=== PATIENT | male | born 1950 | race Caucasian/White ===

== ENCOUNTER 2020-09-25 21:42 | Inpatient (IN) ==
[2020-09-25] MEDS ORDERED: methylPREDNISolone SOD SUC 125 MG/2 ML VIAL IV STA (22:19)
[2020-09-25 22:48] LABS: Basophils % 0.6 % (0.0-0.8); Eosinophils # 0.2 10*3/uL (0.0-0.87); Eosinophils % 2.2 % (0.00-10.9); Hematocrit 57.3 VOL% (42.0-52.0); Hemoglobin 18.2 GM/DL (14.0-18.0); Immature Granulocytes % 0.6 %; Immature Granulocytes Absolute 0.04 #; Lymphocytes # 1.5 10*3/uL (1.4-4.0); Lymphocytes % 20.7 % (21.2-54.2); Mean Corpuscular HGB Conc 31.8 GM/DL (32-36); Mean Corpuscular Volume 96.3 FL (87-102); Mean Platelet Volume 12.1 FL (9.6-12.0); Monocytes % 9.7 % (1.7-12.7); Neutrophils % 66.2 % (38.7-73.9); Platelet Count 193 T/CUMM (130-400); Red Blood Count 5.95 MC/CUMM (3.8-5.5); Red Cell Distribution Width 18.6 % (9.3-17.3); White Blood Count 7.2 T/CUMM (4-12)
[2020-09-25 22:57] LABS: Bilirubin,Total 0.5 MG/DL (0.2-1.0); Calcium 8.6 MG/DL (8.5-10.1); Osmolality,Calculated 287.3 MOS/KG (273-304); Potassium 4.8 MMOL/L (3.5-5.1); Total Protein 7.3 G/DL (5.0-7.5)
[2020-09-25 23:23] LABS: Allen Test Positive
[2020-09-25 23:25] LABS: ABG Base Excess 5.6 MMOL/L (-2.5-2.5); ABG HCO3 29.4 MMOL/L (20-26); ABG Oxygen Saturation 97.1 % (95-100); ABG PCO2 54.7 MM HG (35-48); ABG PH 7.388 (7.35-7.45); ABG PO2 83.2 MM HG (80-95); ABG TCO2 26.8 MMOL/L (23-27)
[2020-09-26] MEDS ORDERED: ALBUTEROL/IPRATROPIUM 3 ML NEB RESP TX STA ×2 (00:08→01:09)
[2020-09-26] MEDS ORDERED: AZITHROMYCIN INJ 500 MG in SODIUM CHLORIDE 0.9% 250 ML IV STA (00:23)
[2020-09-26] MEDS ORDERED: methylPREDNISolone SOD SUC 125 MG/2 ML VIAL IV STA (00:24)
[2020-09-26] MEDS ORDERED: ONDANSETRON 4 MG/2 ML VIAL IV PRN (00:37)
[2020-09-26] MEDS ORDERED: GLUCAGON 1 MG VIAL IM PRN (00:37)
[2020-09-26] MEDS ORDERED: DEXTROSE 50% 25 GM/50 ML VIAL IV PRN (00:37)
[2020-09-26] MEDS ORDERED: SODIUM CHLORIDE 0.9% 1,000 ML IV SCH (01:00)
[2020-09-26] MEDS: ALBUTEROL/IPRATROPIUM 3 ML NEB RESP TX SCH ×6 (04:34→23:40)
[2020-09-26 06:12] LABS: Basophils % 0.4 % (0.0-0.8); Eosinophils % 0.1 % (0.00-10.9); Hematocrit 56.5 VOL% (42.0-52.0); Hemoglobin 18.1 GM/DL (14.0-18.0); Immature Granulocytes % 0.7 %; Immature Granulocytes Absolute 0.05 #; Lymphocytes # 0.7 10*3/uL (1.4-4.0); Lymphocytes % 9.8 % (21.2-54.2); Mean Corpuscular Volume 95.4 FL (87-102); Mean Platelet Volume 12.1 FL (9.6-12.0); Monocytes % 0.9 % (1.7-12.7); Neutrophils % 88.1 % (38.7-73.9); Platelet Count 170 T/CUMM (130-400); Red Blood Count 5.92 MC/CUMM (3.8-5.5); Red Cell Distribution Width 18.5 % (9.3-17.3); White Blood Count 6.7 T/CUMM (4-12)
[2020-09-26 06:19] LABS: Calcium 9.1 MG/DL (8.5-10.1); Potassium 4.5 MMOL/L (3.5-5.1)
[2020-09-26] MEDS ORDERED: ENOXAPARIN 40 MG/0.4 ML SYRINGE SUBCUT SCH (09:00)
[2020-09-26] MEDS ORDERED: FUROSEMIDE 40 MG/4 ML VIAL IV SCH (09:00)
[2020-09-26] MEDS ORDERED: FUROSEMIDE 20 MG TABLET PO SCH (09:00)
[2020-09-26] MEDS: methylPREDNISolone SOD SUC 40 MG/1 ML VIAL IV SCH ×3 (09:05→23:42)
[2020-09-26] MEDS: PANTOPRAZOLE 40 MG TABLET PO SCH (09:06)
[2020-09-26] MEDS: SPIRONOLACTONE 25 MG TABLET PO SCH (09:06)
[2020-09-26] MEDS: APIXABAN 5 MG TABLET PO SCH ×2 (09:06→21:16)
[2020-09-26] MEDS: METOPROLOL SUCCINATE XL 25 MG TABLET PO SCH (09:06)
[2020-09-26] MEDS ORDERED: LEVOFLOXACIN INJ 500 MG in PREMIX 1 EACH IV SCH (13:00)
[2020-09-26] MEDS ORDERED: SKIN HEALING OINT (AQUAPHOR) 50 GM TUBE TOP PRN (14:13)
[2020-09-26] MEDS: LEVOFLOXACIN INJ 750 MG in PREMIX 1 EACH IV SCH (14:25)
[2020-09-26] MEDS ORDERED: AZITHROMYCIN INJ 500 MG in SODIUM CHLORIDE 0.9% 250 ML IV SCH (21:00)
[2020-09-26] MEDS: FUROSEMIDE 40 MG/4 ML VIAL IV SCH (21:19)
[2020-09-27] MEDS: ALBUTEROL/IPRATROPIUM 3 ML NEB RESP TX SCH ×6 (03:13→23:47)
[2020-09-27] MEDS ORDERED: lisinopriL 5 MG TABLET PO SCH (09:00)
[2020-09-27] MEDS: PANTOPRAZOLE 40 MG TABLET PO SCH (09:24)
[2020-09-27] MEDS: methylPREDNISolone SOD SUC 40 MG/1 ML VIAL IV SCH ×3 (09:24→23:50)
[2020-09-27] MEDS: FUROSEMIDE 40 MG/4 ML VIAL IV SCH ×2 (09:24→21:07)
[2020-09-27] MEDS: METOPROLOL SUCCINATE XL 25 MG TABLET PO SCH (09:24)
[2020-09-27] MEDS: APIXABAN 5 MG TABLET PO SCH ×2 (09:24→21:06)
[2020-09-27] MEDS: SPIRONOLACTONE 25 MG TABLET PO SCH (09:24)
[2020-09-27 10:24] LABS: Troponin I < 0.015 NG/ML (0.00-0.045)
[2020-09-27] MEDS: LEVOFLOXACIN INJ 750 MG in PREMIX 1 EACH IV SCH (13:20)
[2020-09-27] MEDS ORDERED: DEXTROSE 50% 25 GM/50 ML VIAL IV PRN (16:47)
[2020-09-27] MEDS ORDERED: GLUCAGON 1 MG VIAL IM PRN (16:47)
[2020-09-27] MEDS: INSULIN REGULAR 100 UNIT/ML SUBCUT SCH (21:07)
[2020-09-28] MEDS: ALBUTEROL/IPRATROPIUM 3 ML NEB RESP TX SCH ×5 (03:20→19:31)
[2020-09-28 04:42] LABS: Risk Ratio 3.72; VLDL CHOLESTEROL 15.4 MG/DL
[2020-09-28 04:44] LABS: Calcium 8.8 MG/DL (8.5-10.1); Osmolality,Calculated 284.7 MOS/KG (273-304); Potassium 4.4 MMOL/L (3.5-5.1)
[2020-09-28 04:49] LABS: Troponin I < 0.015 NG/ML (0.00-0.045)
[2020-09-28 04:59] LABS: Basophils % 0.1 % (0.0-0.8); Hematocrit 56.3 VOL% (42.0-52.0); Immature Granulocytes % 0.6 %; Immature Granulocytes Absolute 0.08 #; Lymphocytes # 0.6 10*3/uL (1.4-4.0); Lymphocytes % 3.8 % (21.2-54.2); Mean Corpuscular Volume 96.2 FL (87-102); Mean Platelet Volume 11.3 FL (9.6-12.0); Monocytes % 2.3 % (1.7-12.7); Neutrophils % 93.2 % (38.7-73.9); Platelet Count 166 T/CUMM (130-400); Red Blood Count 5.85 MC/CUMM (3.8-5.5); Red Cell Distribution Width 17.9 % (9.3-17.3)
[2020-09-28 05:00] LABS: White Blood Count 14.5 T/CUMM (4-12)
[2020-09-28 05:29] LABS: Band Neutrophils 2 % (0-10); Hypochromasia 1+; Lymphocytes 4 % (20-55); Microcytosis 1+; Platelet Estimate Adequate; Segmented Neutrophils 92 % (50-85); Total Cells Counted 100
[2020-09-28] MEDS: INSULIN REGULAR 100 UNIT/ML SUBCUT SCH ×4 (08:32→21:22)
[2020-09-28] MEDS: FUROSEMIDE 40 MG TABLET PO SCH (08:34)
[2020-09-28] MEDS: SPIRONOLACTONE 25 MG TABLET PO SCH (08:34)
[2020-09-28] MEDS: LOSARTAN 25 MG TABLET PO SCH (08:34)
[2020-09-28] MEDS: METOPROLOL SUCCINATE XL 25 MG TABLET PO SCH (08:35)
[2020-09-28] MEDS: PANTOPRAZOLE 40 MG TABLET PO SCH (08:35)
[2020-09-28] MEDS: methylPREDNISolone SOD SUC 40 MG/1 ML VIAL IV SCH ×2 (08:36→16:59)
[2020-09-28] MEDS: APIXABAN 5 MG TABLET PO SCH ×2 (08:55→21:16)
[2020-09-28] MEDS ORDERED: SODIUM CHLORIDE 0.45% 1,000 ML IV SCH (09:00)
[2020-09-28] MEDS ORDERED: DIAZEPAM 5 MG TABLET PO ONE (12:00)
[2020-09-28] MEDS ORDERED: diphenhydrAMINE CAP 25 MG CAPSULE PO ONE (12:00)
[2020-09-28] MEDS: LEVOFLOXACIN INJ 750 MG in PREMIX 1 EACH IV SCH (14:03)
[2020-09-29] MEDS: ALBUTEROL/IPRATROPIUM 3 ML NEB RESP TX SCH ×3 (00:43→08:02)
[2020-09-29 05:54] LABS: Basophils % 0.2 % (0.0-0.8); Hemoglobin 18.5 GM/DL (14.0-18.0); Immature Granulocytes % 0.8 %; Immature Granulocytes Absolute 0.11 #; Lymphocytes # 0.5 10*3/uL (1.4-4.0); Lymphocytes % 3.4 % (21.2-54.2); Mean Corpuscular HGB Conc 31.4 GM/DL (32-36); Mean Corpuscular Volume 95.9 FL (87-102); Mean Platelet Volume 11.8 FL (9.6-12.0); Monocytes % 5.6 % (1.7-12.7); Platelet Count 168 T/CUMM (130-400); Red Blood Count 6.15 MC/CUMM (3.8-5.5); Red Cell Distribution Width 17.8 % (9.3-17.3); White Blood Count 13.2 T/CUMM (4-12)
[2020-09-29 06:25] LABS: Band Neutrophils 1 % (0-10); Lymphocytes 5 % (20-55); Platelet Estimate Normal; Segmented Neutrophils 87 % (50-85); Total Cells Counted 100
[2020-09-29 06:26] LABS: Calcium 8.6 MG/DL (8.5-10.1); Potassium 3.7 MMOL/L (3.5-5.1)
[2020-09-29] MEDS ORDERED: LEVOFLOXACIN 750 MG TABLET PO SCH (09:00)
[2020-09-29] MEDS ORDERED: predniSONE 20 MG TABLET PO SCH (09:00)
[2020-09-29] MEDS: LOSARTAN 25 MG TABLET PO SCH (10:10)
[2020-09-29] MEDS: APIXABAN 5 MG TABLET PO SCH (10:10)
[2020-09-29] MEDS: SPIRONOLACTONE 25 MG TABLET PO SCH (10:10)
[2020-09-29] MEDS: FUROSEMIDE 40 MG TABLET PO SCH (10:11)
[2020-09-29] MEDS: PANTOPRAZOLE 40 MG TABLET PO SCH (10:11)
[2020-09-29] MEDS: METOPROLOL SUCCINATE XL 25 MG TABLET PO SCH (10:11)
[2020-09-29] MEDS: INSULIN REGULAR 100 UNIT/ML SUBCUT SCH ×2 (10:19→12:59)
[2020-09-29 18:47] VITALS: BP 151/79
== END 2020-09-29 13:40 | disposition home health service (06) | DRG 190 ==
LOC: N.ED 21:42 → N.EDINP 09-26 00:37 → SUATTDRO 09-26 00:37 → N.3E 09-26 02:01
PROVIDERS: ADMIT Internal Medicine; ATTEND Internal Medicine

== ENCOUNTER 2020-10-08 00:18 | Inpatient (IN) ==
[2020-10-08 00:41] LABS: Basophils % 0.4 % (0.0-0.8); Eosinophils # 0.1 10*3/uL (0.0-0.87); Hematocrit 57.1 VOL% (42.0-52.0); Hemoglobin 18.9 GM/DL (14.0-18.0); Immature Granulocytes % 1.6 %; Immature Granulocytes Absolute 0.18 #; Lymphocytes # 1.4 10*3/uL (1.4-4.0); Lymphocytes % 12.5 % (21.2-54.2); Mean Corpuscular HGB Conc 33.1 GM/DL (32-36); Mean Corpuscular Volume 93.9 FL (87-102); Monocytes % 8.6 % (1.7-12.7); Neutrophils % 75.9 % (38.7-73.9); Platelet Count 171 T/CUMM (130-400); Red Blood Count 6.08 MC/CUMM (3.8-5.5); White Blood Count 11.4 T/CUMM (4-12)
[2020-10-08 01:06] LABS: Albumin 3.1 G/DL (3.4-5.0); Bilirubin,Total 0.6 MG/DL (0.2-1.0); Calcium 8.7 MG/DL (8.5-10.1); Osmolality,Calculated 278.8 MOS/KG (273-304); Potassium 4.8 MMOL/L (3.5-5.1); Total Protein 6.5 G/DL (6.4-8.2)
[2020-10-08] MEDS ORDERED: methylPREDNISolone SOD SUC 125 MG/2 ML VIAL IV STA (02:15)
[2020-10-08] MEDS ORDERED: ALBUTEROL/IPRATROPIUM 3 ML NEB RESP TX STA (02:15)
[2020-10-08] MEDS ORDERED: ONDANSETRON 4 MG/2 ML VIAL IV STA (02:15)
[2020-10-08] MEDS ORDERED: FUROSEMIDE 40 MG/4 ML VIAL IV STA (02:15)
[2020-10-08] MEDS ORDERED: MAGNESIUM SULF RIDER 2 GM in PREMIX 1 EACH IV STA (02:37)
[2020-10-08 03:54] LABS: INR 4.1
[2020-10-08 03:57] LABS: ABG Base Excess 6.9 MMOL/L (-2.5-2.5); ABG HCO3 30.6 MMOL/L (20-26); ABG Oxygen Saturation 94.2 % (95-100); ABG PH 7.319 (7.35-7.45); ABG PO2 68.3 MM HG (80-95); ABG TCO2 31.2 MMOL/L (23-27)
[2020-10-08 03:59] LABS: ABG PCO2 73.9 MM HG (35-48)
[2020-10-08 04:09] LABS: PT Patient Result 40.8 SECS (9.8-11.9)
[2020-10-08 05:31] LABS: ABG HCO3 30.7 MMOL/L (20-26); ABG Oxygen Saturation 95.1 % (95-100); ABG PCO2 53.1 MM HG (35-48); ABG PH 7.415 (7.35-7.45); ABG PO2 65.3 MM HG (80-95); ABG TCO2 27.3 MMOL/L (23-27)
[2020-10-08] MEDS ORDERED: ALBUTEROL 2.5 MG/3 ML NEB RESP TX PRN (06:12)
[2020-10-08] MEDS ORDERED: DOCUSATE SODIUM 100 MG CAPSULE PO PRN (06:15)
[2020-10-08] MEDS ORDERED: ONDANSETRON 4 MG/2 ML VIAL IV PRN (06:15)
[2020-10-08] MEDS ORDERED: DEXTROSE 50% 25 GM/50 ML VIAL IV PRN (06:15)
[2020-10-08] MEDS ORDERED: ACETAMINOPHEN 325 MG TABLET PO PRN (06:15)
[2020-10-08] MEDS ORDERED: GLUCAGON 1 MG VIAL IM PRN (06:15)
[2020-10-08 06:54] LABS: Risk Ratio 5.38; VLDL CHOLESTEROL 26.4 MG/DL
[2020-10-08] MEDS: ALBUTEROL/IPRATROPIUM 3 ML NEB RESP TX SCH ×3 (07:48→18:57)
[2020-10-08] MEDS: INSULIN LISPRO 100 UNIT/ML SUBCUT SCH ×4 (09:51→20:52)
[2020-10-08] MEDS: FUROSEMIDE 40 MG/4 ML VIAL IV SCH ×2 (09:52→17:20)
[2020-10-08] MEDS: APIXABAN 5 MG TABLET PO SCH ×2 (09:52→20:47)
[2020-10-08] MEDS: AZITHROMYCIN INJ 500 MG in SODIUM CHLORIDE 0.9% 250 ML IV SCH (09:52)
[2020-10-08] MEDS: METOPROLOL SUCCINATE XL 25 MG TABLET PO SCH (09:53)
[2020-10-08] MEDS: methylPREDNISolone SOD SUC 40 MG/1 ML VIAL IV SCH ×2 (13:56→23:56)
[2020-10-08] MEDS ORDERED: SKIN HEALING OINT (AQUAPHOR) 50 GM TUBE TOP PRN (17:17)
[2020-10-08] MEDS: TRIAMCINOLONE 0.1% CREAM 15 GM TUBE TOP SCH ×2 (17:20→20:48)
[2020-10-09] MEDS: ALBUTEROL/IPRATROPIUM 3 ML NEB RESP TX SCH ×4 (00:36→18:43)
[2020-10-09] MEDS: methylPREDNISolone SOD SUC 40 MG/1 ML VIAL IV SCH ×3 (05:34→21:28)
[2020-10-09 05:48] LABS: Basophils # 0.1 10*3/uL (0.0-0.2); Basophils % 0.3 % (0.0-0.8); Hematocrit 53.2 VOL% (42.0-52.0); Hemoglobin 17.4 GM/DL (14.0-18.0); Immature Granulocytes % 1.2 %; Immature Granulocytes Absolute 0.23 #; Lymphocytes # 0.6 10*3/uL (1.4-4.0); Lymphocytes % 3.2 % (21.2-54.2); Mean Corpuscular HGB Conc 32.7 GM/DL (32-36); Mean Corpuscular Volume 93.8 FL (87-102); Mean Platelet Volume 12.4 FL (9.6-12.0); Monocytes % 2.3 % (1.7-12.7); NRBC # 0.02 10*3/uL; Platelet Count 164 T/CUMM (130-400); Red Blood Count 5.67 MC/CUMM (3.8-5.5); White Blood Count 18.6 T/CUMM (4-12)
[2020-10-09 06:02] LABS: Calcium 8.9 MG/DL (8.5-10.1); Osmolality,Calculated 287.2 MOS/KG (273-304); Potassium 4.3 MMOL/L (3.5-5.1)
[2020-10-09] MEDS: AZITHROMYCIN INJ 500 MG in SODIUM CHLORIDE 0.9% 250 ML IV SCH (06:12)
[2020-10-09 06:23] LABS: Band Neutrophils 2 % (0-10); Lymphocytes 5 % (20-55); Segmented Neutrophils 91 % (50-85); Total Cells Counted 100
[2020-10-09 06:24] LABS: Platelet Estimate Adequate
[2020-10-09] MEDS: APIXABAN 5 MG TABLET PO SCH ×2 (08:34→20:38)
[2020-10-09] MEDS: FUROSEMIDE 40 MG/4 ML VIAL IV SCH (08:35)
[2020-10-09] MEDS: METOPROLOL SUCCINATE XL 25 MG TABLET PO SCH (08:35)
[2020-10-09] MEDS: INSULIN LISPRO 100 UNIT/ML SUBCUT SCH ×4 (08:35→20:38)
[2020-10-09] MEDS: TRIAMCINOLONE 0.1% CREAM 15 GM TUBE TOP SCH ×2 (08:36→20:38)
[2020-10-09] MEDS: LEVOFLOXACIN INJ 750 MG in PREMIX 1 EACH IV SCH (10:55)
[2020-10-10] MEDS: ALBUTEROL/IPRATROPIUM 3 ML NEB RESP TX SCH ×4 (01:25→19:15)
[2020-10-10 05:47] LABS: Basophils # 0.1 10*3/uL (0.0-0.2); Basophils % 0.3 % (0.0-0.8); Hematocrit 54.6 VOL% (42.0-52.0); Hemoglobin 17.2 GM/DL (14.0-18.0); Immature Granulocytes Absolute 0.23 #; Lymphocytes # 0.6 10*3/uL (1.4-4.0); Lymphocytes % 2.6 % (21.2-54.2); Mean Corpuscular HGB Conc 31.5 GM/DL (32-36); Mean Corpuscular Volume 96.8 FL (87-102); Mean Platelet Volume 12.1 FL (9.6-12.0); Neutrophils % 94.1 % (38.7-73.9); Platelet Count 157 T/CUMM (130-400); Red Blood Count 5.64 MC/CUMM (3.8-5.5); Red Cell Distribution Width 17.4 % (9.3-17.3); White Blood Count 23.5 T/CUMM (4-12)
[2020-10-10] MEDS: methylPREDNISolone SOD SUC 40 MG/1 ML VIAL IV SCH ×3 (05:51→21:54)
[2020-10-10 06:04] LABS: Osmolality,Calculated 276.1 MOS/KG (273-304); Potassium 4.7 MMOL/L (3.5-5.1)
[2020-10-10 06:10] LABS: Band Neutrophils 2 % (0-10); Hypochromasia 1+; Lymphocytes 2 % (20-55); Microcytosis 1+; Segmented Neutrophils 93 % (50-85); Total Cells Counted 100
[2020-10-10 06:11] LABS: Platelet Estimate Adequate
[2020-10-10] MEDS: METOPROLOL SUCCINATE XL 25 MG TABLET PO SCH (08:25)
[2020-10-10] MEDS: LEVOFLOXACIN INJ 750 MG in PREMIX 1 EACH IV SCH ×2 (08:25→13:29)
[2020-10-10] MEDS: APIXABAN 5 MG TABLET PO SCH ×2 (08:25→21:53)
[2020-10-10] MEDS: INSULIN LISPRO 100 UNIT/ML SUBCUT SCH ×4 (08:27→21:53)
[2020-10-10] MEDS: TRIAMCINOLONE 0.1% CREAM 15 GM TUBE TOP SCH ×2 (08:27→21:53)
[2020-10-10] MEDS ORDERED: FUROSEMIDE 40 MG/4 ML VIAL IV SCH ×2 (09:00)
[2020-10-10] MEDS: FUROSEMIDE 40 MG/4 ML VIAL IV SCH (16:00)
[2020-10-11] MEDS: ALBUTEROL/IPRATROPIUM 3 ML NEB RESP TX SCH ×3 (00:05→13:30)
[2020-10-11] MEDS: methylPREDNISolone SOD SUC 40 MG/1 ML VIAL IV SCH (05:35)
[2020-10-11 07:16] LABS: Basophils % 0.2 % (0.0-0.8); Hematocrit 54.5 VOL% (42.0-52.0); Hemoglobin 17.6 GM/DL (14.0-18.0); Immature Granulocytes % 0.7 %; Immature Granulocytes Absolute 0.13 #; Lymphocytes # 0.5 10*3/uL (1.4-4.0); Lymphocytes % 2.5 % (21.2-54.2); Mean Corpuscular HGB Conc 32.3 GM/DL (32-36); Mean Corpuscular Volume 95.6 FL (87-102); Mean Platelet Volume 11.2 FL (9.6-12.0); Monocytes % 2.2 % (1.7-12.7); Neutrophils % 94.4 % (38.7-73.9); Platelet Count 142 T/CUMM (130-400); Red Cell Distribution Width 17.5 % (9.3-17.3); White Blood Count 17.8 T/CUMM (4-12)
[2020-10-11 07:28] LABS: Calcium 8.8 MG/DL (8.5-10.1); Osmolality,Calculated 277.1 MOS/KG (273-304); Potassium 4.7 MMOL/L (3.5-5.1)
[2020-10-11 07:39] LABS: Lymphocytes 4 % (20-55); Platelet Estimate Adequate; Segmented Neutrophils 95 % (50-85); Total Cells Counted 100
[2020-10-11] MEDS: INSULIN LISPRO 100 UNIT/ML SUBCUT SCH ×2 (08:45→13:31)
[2020-10-11] MEDS: METOPROLOL SUCCINATE XL 25 MG TABLET PO SCH (09:28)
[2020-10-11] MEDS: FUROSEMIDE 40 MG/4 ML VIAL IV SCH (09:28)
[2020-10-11] MEDS: APIXABAN 5 MG TABLET PO SCH (09:29)
[2020-10-11] MEDS: TRIAMCINOLONE 0.1% CREAM 15 GM TUBE TOP SCH (09:29)
[2020-10-11] MEDS: LEVOFLOXACIN INJ 750 MG in PREMIX 1 EACH IV SCH (09:30)
[2020-10-11 12:29] VITALS: BP 158/75
== END 2020-10-11 14:21 | disposition home health service (06) | DRG 291 ==
LOC: SUATTDRO → N.ED 00:18 → N.EDINP 00:18 → N.TELES 07:55
PROVIDERS: ADMIT Internal Medicine; ATTEND Internal Medicine

== ENCOUNTER 2020-12-25 19:24 | Inpatient (IN) ==
[2020-12-25] MEDS ORDERED: FUROSEMIDE 100 MG/10 ML VIAL IV STA (19:45)
[2020-12-25 19:59] LABS: Basophils % 0.5 % (0.0-0.8); Eosinophils # 0.2 10*3/uL (0.0-0.87); Eosinophils % 2.2 % (0.00-10.9); Hematocrit 50.8 VOL% (42.0-52.0); Hemoglobin 16.3 GM/DL (14.0-18.0); Immature Granulocytes % 0.7 %; Immature Granulocytes Absolute 0.06 #; Lymphocytes # 1.8 10*3/uL (1.4-4.0); Lymphocytes % 21.1 % (21.2-54.2); Mean Corpuscular HGB Conc 32.1 GM/DL (32-36); Mean Corpuscular Volume 99.6 FL (87-102); Mean Platelet Volume 11.1 FL (9.6-12.0); Monocytes % 9.6 % (1.7-12.7); Neutrophils % 65.9 % (38.7-73.9); Platelet Count 217 T/CUMM (130-400); Red Cell Distribution Width 15.9 % (9.3-17.3); White Blood Count 8.5 T/CUMM (4-12)
[2020-12-25 20:13] LABS: INR 1.1
[2020-12-25 20:24] LABS: Alanine Aminotransferase < 6 U/L (16-61); Albumin 2.8 G/DL (3.4-5.0); Alkaline Phosphatase 72 U/L (45-117); Aspartate Amino Transferase 10 U/L (0-37); Bilirubin,Total < 0.39 MG/DL (0.2-1.0); Blood Urea Nitrogen 12 MG/DL (7-18); Calcium 8.9 MG/DL (8.5-10.1); Carbon Dioxide 30 MMOL/L (21-32); Estimated Glom Filtration Rate 137 ML/MIN; Glucose 124 MG/DL (74-106); Osmolality,Calculated 279.4 MOS/KG (273-304); Potassium 4.1 MMOL/L (3.5-5.1); Sodium 140 MMOL/L (136-145); Total Protein 6.8 G/DL (6.4-8.2)
[2020-12-25 21:17] LABS: ABG Base Excess 4.7 MMOL/L (-2.5-2.5); ABG HCO3 28.5 MMOL/L (20-26); ABG PCO2 63.5 MM HG (35-48); ABG PH 7.332 (7.35-7.45); ABG PO2 73.6 MM HG (80-95); ABG TCO2 28.3 MMOL/L (23-27); Allen Test Positive
[2020-12-25] MEDS ORDERED: GLUCAGON 1 MG VIAL IM PRN (23:48)
[2020-12-25] MEDS ORDERED: DEXTROSE 50% 25 GM/50 ML VIAL IV PRN (23:48)
[2020-12-26] MEDS ORDERED: DOCUSATE SODIUM 100 MG CAPSULE PO PRN (00:20)
[2020-12-26] MEDS ORDERED: hydrALAZINE 20 MG/1 ML VIAL IV PRN (00:20)
[2020-12-26] MEDS ORDERED: ACETAMINOPHEN 325 MG TABLET PO PRN (00:20)
[2020-12-26] MEDS ORDERED: ONDANSETRON 4 MG/2 ML VIAL IV PRN (00:20)
[2020-12-26] MEDS: ALBUTEROL/IPRATROPIUM 3 ML NEB RESP TX SCH ×4 (00:55→21:54)
[2020-12-26] MEDS ORDERED: NICOTINE 21 MG/24 HR PATCH TRANSDERM PRN (01:05)
[2020-12-26] MEDS: APIXABAN 5 MG TABLET PO SCH ×3 (01:42→20:33)
[2020-12-26 04:54] LABS: Basophils % 0.4 % (0.0-0.8); Eosinophils # 0.1 10*3/uL (0.0-0.87); Eosinophils % 1.7 % (0.00-10.9); Hematocrit 50.4 VOL% (42.0-52.0); Hemoglobin 16.4 GM/DL (14.0-18.0); Immature Granulocytes % 0.5 %; Immature Granulocytes Absolute 0.04 #; Lymphocytes # 1.4 10*3/uL (1.4-4.0); Lymphocytes % 16.7 % (21.2-54.2); Mean Corpuscular HGB Conc 32.5 GM/DL (32-36); Mean Corpuscular Volume 99.6 FL (87-102); Mean Platelet Volume 11.8 FL (9.6-12.0); Monocytes % 9.3 % (1.7-12.7); Neutrophils % 71.4 % (38.7-73.9); Platelet Count 159 T/CUMM (130-400); Red Blood Count 5.06 MC/CUMM (3.8-5.5); Red Cell Distribution Width 15.9 % (9.3-17.3); White Blood Count 8.3 T/CUMM (4-12)
[2020-12-26 05:14] LABS: Platelet Estimate Adequate
[2020-12-26 05:21] LABS: Calcium 8.8 MG/DL (8.5-10.1); Osmolality,Calculated 274.7 MOS/KG (273-304); Potassium 4.2 MMOL/L (3.5-5.1)
[2020-12-26] MEDS: INSULIN LISPRO 100 UNIT/ML SUBCUT SCH ×4 (08:18→20:33)
[2020-12-26] MEDS ORDERED: LEVOFLOXACIN INJ 500 MG/100 ML PREMIX IV SCH (09:30)
[2020-12-26] MEDS: FUROSEMIDE 40 MG/4 ML VIAL IV SCH ×2 (09:31→17:39)
[2020-12-26] MEDS: METOPROLOL SUCCINATE XL 25 MG TABLET PO SCH (09:32)
[2020-12-26] MEDS ORDERED: SKIN HEALING OINT (AQUAPHOR) 50 GM TUBE TOP PRN (13:11)
[2020-12-26] MEDS: CLINDAMYCIN INJ 300 MG/50 ML PREMIX IV SCH ×2 (13:55→20:34)
[2020-12-27] MEDS: ALBUTEROL/IPRATROPIUM 3 ML NEB RESP TX SCH ×4 (00:20→19:29)
[2020-12-27] MEDS: CLINDAMYCIN INJ 300 MG/50 ML PREMIX IV SCH ×3 (04:42→20:17)
[2020-12-27 06:12] LABS: Basophils % 0.3 % (0.0-0.8); Eosinophils # 0.1 10*3/uL (0.0-0.87); Eosinophils % 1.1 % (0.00-10.9); Hematocrit 51.7 VOL% (42.0-52.0); Hemoglobin 16.5 GM/DL (14.0-18.0); Immature Granulocytes % 0.6 %; Immature Granulocytes Absolute 0.07 #; Lymphocytes # 1.4 10*3/uL (1.4-4.0); Mean Corpuscular HGB Conc 31.9 GM/DL (32-36); Mean Corpuscular Volume 100.2 FL (87-102); Mean Platelet Volume 11.5 FL (9.6-12.0); Monocytes % 8.5 % (1.7-12.7); Neutrophils % 77.5 % (38.7-73.9); Platelet Count 200 T/CUMM (130-400); Red Blood Count 5.16 MC/CUMM (3.8-5.5); Red Cell Distribution Width 15.7 % (9.3-17.3); White Blood Count 11.6 T/CUMM (4-12)
[2020-12-27 06:28] LABS: Calcium 8.4 MG/DL (8.5-10.1); Osmolality,Calculated 275.8 MOS/KG (273-304); Potassium 3.8 MMOL/L (3.5-5.1)
[2020-12-27] MEDS: METOPROLOL SUCCINATE XL 25 MG TABLET PO SCH (09:12)
[2020-12-27] MEDS: INSULIN LISPRO 100 UNIT/ML SUBCUT SCH ×4 (09:12→20:17)
[2020-12-27] MEDS: APIXABAN 5 MG TABLET PO SCH ×2 (09:12→20:17)
[2020-12-27] MEDS: LOSARTAN 25 MG TABLET PO SCH (09:12)
[2020-12-27] MEDS: FUROSEMIDE 40 MG/4 ML VIAL IV SCH ×2 (09:13→17:15)
[2020-12-27] MEDS ORDERED: TUBERCULIN SKIN TEST 0.1 ML SYRINGE INTRADERM ONE (10:57)
[2020-12-28] MEDS: ALBUTEROL/IPRATROPIUM 3 ML NEB RESP TX SCH ×2 (01:00→07:10)
[2020-12-28] MEDS: CLINDAMYCIN INJ 300 MG/50 ML PREMIX IV SCH (04:48)
[2020-12-28 07:33] LABS: Calcium 8.2 MG/DL (8.5-10.1); Osmolality,Calculated 276.8 MOS/KG (273-304); Potassium 3.8 MMOL/L (3.5-5.1)
[2020-12-28] MEDS: INSULIN LISPRO 100 UNIT/ML SUBCUT SCH (08:06)
[2020-12-28] MEDS ORDERED: METOPROLOL SUCCINATE XL 50 MG TABLET PO SCH (09:00)
[2020-12-28] MEDS: LOSARTAN 25 MG TABLET PO SCH (09:52)
[2020-12-28] MEDS: FUROSEMIDE 40 MG/4 ML VIAL IV SCH (09:53)
[2020-12-28] MEDS: APIXABAN 5 MG TABLET PO SCH (09:53)
[2020-12-28 12:15] VITALS: BP 116/71
== END 2020-12-28 11:28 | disposition swing bed (61) | DRG 291 ==
LOC: N.ED 19:24 → N.EDINP 22:03 → N.TELEN 23:36
PROVIDERS: ADMIT Internal Medicine; ATTEND Internal Medicine

== ENCOUNTER 2021-02-02 19:55 | Inpatient (IN) ==
[2021-02-02 21:42] LABS: Basophils # 0.1 10*3/uL (0.0-0.2); Basophils % 0.5 % (0.0-0.8); Eosinophils # 0.2 10*3/uL (0.0-0.87); Hematocrit 53.4 VOL% (42.0-52.0); Hemoglobin 17.4 GM/DL (14.0-18.0); Immature Granulocytes % 0.9 %; Immature Granulocytes Absolute 0.08 #; Lymphocytes # 1.8 10*3/uL (1.4-4.0); Lymphocytes % 19.1 % (21.2-54.2); Mean Corpuscular HGB Conc 32.6 GM/DL (32-36); Mean Platelet Volume 11.7 FL (9.6-12.0); Monocytes % 11.4 % (1.7-12.7); Neutrophils % 66.1 % (38.7-73.9); Platelet Count 218 T/CUMM (130-400); Red Blood Count 5.45 MC/CUMM (3.8-5.5); White Blood Count 9.3 T/CUMM (4-12)
[2021-02-02 21:53] LABS: ABG Base Excess 3.6 MMOL/L (-2.5-2.5); ABG HCO3 27.5 MMOL/L (20-26); ABG Oxygen Saturation 95.2 % (95-100); ABG PCO2 64.3 MM HG (35-48); ABG PH 7.316 (7.35-7.45); ABG TCO2 27.6 MMOL/L (23-27)
[2021-02-02 22:03] LABS: Alanine Aminotransferase 13 U/L (16-61); Albumin 3.1 G/DL (3.4-5.0); Alkaline Phosphatase 88 U/L (45-117); Aspartate Amino Transferase 21 U/L (0-37); Blood Urea Nitrogen 27 MG/DL (7-18); Calcium 8.7 MG/DL (8.5-10.1); Carbon Dioxide 33 MMOL/L (21-32); Estimated Glom Filtration Rate 66 ML/MIN; Glucose 162 MG/DL (74-106); Potassium 4.8 MMOL/L (3.5-5.1); Sodium 136 MMOL/L (136-145); Total Protein 7.1 G/DL (6.4-8.2)
[2021-02-02] MEDS ORDERED: SODIUM CHLORIDE 0.9% 2,000 ML IV STA (23:04)
[2021-02-02] MEDS ORDERED: SODIUM CHLORIDE 0.9% 1,000 ML IV STA (23:04)
[2021-02-02] MEDS ORDERED: CLINDAMYCIN INJ 600 MG/50 ML PREMIX IV ONE (23:05)
[2021-02-02] MEDS ORDERED: VANCOMYCIN INJ 1,000 MG in SODIUM CHLORIDE 0.9% 250 ML IV STA (23:05)
[2021-02-02] MEDS ORDERED: DEXTROSE 50% 25 GM/50 ML VIAL IV PRN ×2 (23:12)
[2021-02-02] MEDS ORDERED: GLUCAGON 1 MG VIAL IM PRN ×2 (23:12)
[2021-02-02] MEDS ORDERED: hydrALAZINE 20 MG/1 ML VIAL IV PRN (23:12)
[2021-02-02] MEDS ORDERED: MORPHINE 2 MG/1 ML SYRINGE IV PRN (23:12)
[2021-02-02] MEDS ORDERED: ZALEPLON 5 MG CAPSULE PO PRN (23:12)
[2021-02-02] MEDS ORDERED: ACETAMINOPHEN 325 MG TABLET PO PRN (23:12)
[2021-02-02] MEDS ORDERED: NICOTINE 21 MG/24 HR PATCH TRANSDERM PRN (23:12)
[2021-02-02] MEDS ORDERED: guaiFENesin/DM ER 600-30 MG TABLET PO PRN (23:12)
[2021-02-02] MEDS ORDERED: diphenhydrAMINE CAP 25 MG CAPSULE PO PRN (23:12)
[2021-02-02] MEDS ORDERED: ONDANSETRON 4 MG/2 ML VIAL IV PRN (23:12)
[2021-02-02] MEDS ORDERED: SODIUM CHLORIDE 0.9% 1,000 ML IV SCH (23:30)
[2021-02-03] MEDS: methylPREDNISolone SOD SUC 40 MG/1 ML VIAL IV SCH ×4 (01:45→18:30)
[2021-02-03] MEDS: ALBUTEROL/IPRATROPIUM 3 ML NEB RESP TX SCH ×4 (01:53→20:09)
[2021-02-03] MEDS ORDERED: VANCOMYCIN INJ 1,000 MG in SODIUM CHLORIDE 0.9% 250 ML IV ONE (02:00)
[2021-02-03 02:04] LABS: ABG Base Excess 1.4 MMOL/L (-2.5-2.5); ABG HCO3 25.6 MMOL/L (20-26); ABG Oxygen Saturation 97.6 % (95-100); ABG PCO2 61.6 MM HG (35-48); ABG PH 7.298 (7.35-7.45); ABG PO2 94.4 MM HG (80-95); ABG TCO2 25.9 MMOL/L (23-27)
[2021-02-03 05:08] LABS: Basophils % 0.4 % (0.0-0.8); Eosinophils # 0.1 10*3/uL (0.0-0.87); Hematocrit 50.9 VOL% (42.0-52.0); Hemoglobin 16.1 GM/DL (14.0-18.0); Immature Granulocytes Absolute 0.07 #; Lymphocytes # 0.8 10*3/uL (1.4-4.0); Lymphocytes % 11.4 % (21.2-54.2); Mean Corpuscular HGB Conc 31.6 GM/DL (32-36); Mean Corpuscular Volume 99.8 FL (87-102); Mean Platelet Volume 11.6 FL (9.6-12.0); Monocytes % 3.1 % (1.7-12.7); Neutrophils % 83.1 % (38.7-73.9); Platelet Count 177 T/CUMM (130-400); Red Cell Distribution Width 14.9 % (9.3-17.3); White Blood Count 7.1 T/CUMM (4-12)
[2021-02-03 05:35] LABS: Albumin 2.7 G/DL (3.4-5.0); Bilirubin,Total 1.2 MG/DL (0.20-1.00); Calcium 7.8 MG/DL (8.5-10.1); Osmolality,Calculated 282.5 MOS/KG (273-304); Potassium 4.8 MMOL/L (3.5-5.1); Total Protein 6.2 G/DL (6.4-8.2)
[2021-02-03] MEDS: CLINDAMYCIN INJ 600 MG/50 ML PREMIX IV SCH ×2 (05:58→12:41)
[2021-02-03 08:25] LABS: ABG Base Excess 2.4 MMOL/L (-2.5-2.5); ABG HCO3 26.4 MMOL/L (20-26); ABG PCO2 58.8 MM HG (35-48); ABG PH 7.325 (7.35-7.45); ABG TCO2 25.9 MMOL/L (23-27)
[2021-02-03] MEDS: INSULIN LISPRO 100 UNIT/ML SUBCUT SCH ×4 (08:32→20:40)
[2021-02-03] MEDS: APIXABAN 5 MG TABLET PO SCH ×2 (12:33→20:40)
[2021-02-03] MEDS: METOPROLOL SUCCINATE XL 50 MG TABLET PO SCH (12:33)
[2021-02-03] MEDS: LOSARTAN 25 MG TABLET PO SCH (12:33)
[2021-02-03] MEDS: BISACODYL 5 MG TABLET PO SCH (12:34)
[2021-02-03] MEDS: PANTOPRAZOLE 40 MG TABLET PO SCH (12:34)
[2021-02-03] MEDS: metroNIDAZOLE INJ 500 MG/100 ML PREMIX IV SCH ×2 (15:43→22:55)
[2021-02-03] MEDS: CIPROFLOXACIN INJ 400 MG/200 ML PREMIX IV SCH (16:50)
[2021-02-03] MEDS: VANCOMYCIN INJ 2,000 MG in SODIUM CHLORIDE 0.9% 500 ML IV SCH (20:40)
[2021-02-04] MEDS: methylPREDNISolone SOD SUC 40 MG/1 ML VIAL IV SCH ×3 (01:15→17:00)
[2021-02-04] MEDS: ALBUTEROL/IPRATROPIUM 3 ML NEB RESP TX SCH ×4 (01:32→19:26)
[2021-02-04] MEDS: CIPROFLOXACIN INJ 400 MG/200 ML PREMIX IV SCH ×2 (04:25→16:59)
[2021-02-04 06:09] LABS: Basophils % 0.1 % (0.0-0.8); Hematocrit 48.4 VOL% (42.0-52.0); Hemoglobin 15.8 GM/DL (14.0-18.0); Immature Granulocytes % 0.6 %; Immature Granulocytes Absolute 0.08 #; Lymphocytes # 0.5 10*3/uL (1.4-4.0); Lymphocytes % 3.8 % (21.2-54.2); Mean Corpuscular HGB Conc 32.6 GM/DL (32-36); Mean Platelet Volume 11.7 FL (9.6-12.0); Monocytes % 2.2 % (1.7-12.7); Neutrophils % 93.3 % (38.7-73.9); Platelet Count 165 T/CUMM (130-400); Red Blood Count 4.89 MC/CUMM (3.8-5.5); Red Cell Distribution Width 14.5 % (9.3-17.3); White Blood Count 14.1 T/CUMM (4-12)
[2021-02-04 06:31] LABS: Alanine Aminotransferase < 9 U/L (16-61); Albumin 2.7 G/DL (3.4-5.0); Alkaline Phosphatase 69 U/L (45-117); Aspartate Amino Transferase 8 U/L (0-37); Bilirubin,Total < 0.39 MG/DL (0.20-1.00); Blood Urea Nitrogen 11 MG/DL (7-18); Calcium 8.4 MG/DL (8.5-10.1); Carbon Dioxide 30 MMOL/L (21-32); Estimated Glom Filtration Rate 130 ML/MIN; Glucose 237 MG/DL (74-106); Osmolality,Calculated 279.8 MOS/KG (273-304); Potassium 4.3 MMOL/L (3.5-5.1); Sodium 137 MMOL/L (136-145); Total Protein 6.2 G/DL (6.4-8.2)
[2021-02-04 06:38] LABS: Anisocytosis Slight; Band Neutrophils 1 % (0-10); Lymphocytes 5 % (20-55); Macrocytosis Slight; Platelet Estimate Normal; Segmented Neutrophils 92 % (50-85); Total Cells Counted 100
[2021-02-04] MEDS: metroNIDAZOLE INJ 500 MG/100 ML PREMIX IV SCH ×2 (10:16→16:59)
[2021-02-04] MEDS: METOPROLOL SUCCINATE XL 50 MG TABLET PO SCH (10:17)
[2021-02-04] MEDS: APIXABAN 5 MG TABLET PO SCH ×2 (10:17→20:57)
[2021-02-04] MEDS: BISACODYL 5 MG TABLET PO SCH (10:17)
[2021-02-04] MEDS: LOSARTAN 25 MG TABLET PO SCH (10:17)
[2021-02-04] MEDS: PANTOPRAZOLE 40 MG TABLET PO SCH (10:17)
[2021-02-04] MEDS: INSULIN LISPRO 100 UNIT/ML SUBCUT SCH ×4 (10:18→20:57)
[2021-02-04] MEDS ORDERED: SKIN HEALING OINT (AQUAPHOR) 50 GM TUBE TOP PRN (14:05)
[2021-02-04] MEDS: ZINC OXIDE PASTE 113 GM TUBE TOP SCH ×2 (19:43→20:57)
[2021-02-04] MEDS: VANCOMYCIN INJ 2,000 MG in SODIUM CHLORIDE 0.9% 500 ML IV SCH (20:56)
[2021-02-05] MEDS: metroNIDAZOLE INJ 500 MG/100 ML PREMIX IV SCH ×2 (00:06→09:29)
[2021-02-05] MEDS: ALBUTEROL/IPRATROPIUM 3 ML NEB RESP TX SCH ×2 (00:07→07:20)
[2021-02-05] MEDS: methylPREDNISolone SOD SUC 40 MG/1 ML VIAL IV SCH ×2 (01:43→09:29)
[2021-02-05] MEDS: CIPROFLOXACIN INJ 400 MG/200 ML PREMIX IV SCH (04:10)
[2021-02-05 05:39] LABS: Basophils % 0.1 % (0.0-0.8); Hematocrit 49.7 VOL% (42.0-52.0); Hemoglobin 16.1 GM/DL (14.0-18.0); Immature Granulocytes % 0.8 %; Immature Granulocytes Absolute 0.13 #; Lymphocytes # 0.4 10*3/uL (1.4-4.0); Lymphocytes % 2.5 % (21.2-54.2); Mean Corpuscular HGB Conc 32.4 GM/DL (32-36); Mean Corpuscular Volume 99.6 FL (87-102); Mean Platelet Volume 11.9 FL (9.6-12.0); Monocytes % 2.4 % (1.7-12.7); Neutrophils % 94.2 % (38.7-73.9); Platelet Count 178 T/CUMM (130-400); Red Blood Count 4.99 MC/CUMM (3.8-5.5); Red Cell Distribution Width 14.5 % (9.3-17.3); White Blood Count 16.6 T/CUMM (4-12)
[2021-02-05 06:06] LABS: Albumin 2.8 G/DL (3.4-5.0); Bilirubin,Total 0.6 MG/DL (0.20-1.00); Calcium 8.8 MG/DL (8.5-10.1); Osmolality,Calculated 286.3 MOS/KG (273-304); Potassium 4.1 MMOL/L (3.5-5.1); Total Protein 6.2 G/DL (6.4-8.2)
[2021-02-05 06:26] LABS: Band Neutrophils 3 % (0-10); Lymphocytes 5 % (20-55); Platelet Estimate Normal; Segmented Neutrophils 91 % (50-85); Total Cells Counted 100
[2021-02-05 06:27] LABS: Anisocytosis Slight; Macrocytosis Slight
[2021-02-05] MEDS: METOPROLOL SUCCINATE XL 50 MG TABLET PO SCH (09:28)
[2021-02-05] MEDS: BISACODYL 5 MG TABLET PO SCH (09:28)
[2021-02-05] MEDS: LOSARTAN 25 MG TABLET PO SCH (09:28)
[2021-02-05] MEDS: PANTOPRAZOLE 40 MG TABLET PO SCH (09:28)
[2021-02-05] MEDS: APIXABAN 5 MG TABLET PO SCH (09:29)
[2021-02-05] MEDS: INSULIN LISPRO 100 UNIT/ML SUBCUT SCH ×2 (09:29→12:38)
[2021-02-05] MEDS: ZINC OXIDE PASTE 113 GM TUBE TOP SCH (09:30)
[2021-02-05 12:00] VITALS: BP 171/86
== END 2021-02-05 13:42 | disposition home health service (06) | DRG 637 ==
LOC: N.ED 19:55 → N.EDINP 23:12 → N.5E 02-03 01:39
PROVIDERS: ADMIT Internal Medicine; ATTEND Internal Medicine

== ENCOUNTER 2021-03-14 20:55 | Observation (INO) ==
[2021-03-14 22:02] LABS: Basophils # 0.1 10*3/uL (0.0-0.2); Basophils % 0.6 % (0.0-0.8); Eosinophils # 0.1 10*3/uL (0.0-0.87); Eosinophils % 0.8 % (0.00-10.9); Hematocrit 52.9 VOL% (42.0-52.0); Immature Granulocytes % 1.6 %; Immature Granulocytes Absolute 0.14 #; Lymphocytes # 1.7 10*3/uL (1.4-4.0); Lymphocytes % 18.7 % (21.2-54.2); Mean Corpuscular HGB Conc 32.1 GM/DL (32-36); Mean Platelet Volume 11.1 FL (9.6-12.0); Neutrophils % 67.3 % (38.7-73.9); Platelet Count 216 T/CUMM (130-400); Red Cell Distribution Width 16.1 % (9.3-17.3); White Blood Count 8.9 T/CUMM (4-12)
[2021-03-14 22:26] LABS: INR 1.2
[2021-03-14 22:36] LABS: Albumin 2.9 G/DL (3.4-5.0); Bilirubin,Total 0.4 MG/DL (0.20-1.00); Calcium 8.5 MG/DL (8.5-10.1); Osmolality,Calculated 282.3 MOS/KG (273-304); Potassium 4.4 MMOL/L (3.5-5.1); Total Protein 6.5 G/DL (6.4-8.2)
[2021-03-14 22:52] LABS: ABG Base Excess 6.6 MMOL/L (-2.5-2.5); ABG HCO3 30.3 MMOL/L (20-26); ABG Oxygen Saturation 95.4 % (95-100); ABG PCO2 63.9 MM HG (35-48); ABG PH 7.353 (7.35-7.45); ABG PO2 69.5 MM HG (80-95); ABG TCO2 29.6 MMOL/L (23-27)
[2021-03-15] MEDS ORDERED: DEXTROSE 50% 25 GM/50 ML VIAL IV PRN (02:13)
[2021-03-15] MEDS ORDERED: MORPHINE 2 MG/1 ML SYRINGE IV PRN (02:13)
[2021-03-15] MEDS ORDERED: GLUCAGON 1 MG VIAL IM PRN (02:13)
[2021-03-15] MEDS ORDERED: BISACODYL 5 MG TABLET PO PRN (02:41)
[2021-03-15 03:35] LABS: ABG Base Excess 7.1 MMOL/L (-2.5-2.5); ABG HCO3 30.8 MMOL/L (20-26); ABG Oxygen Saturation 94.5 % (95-100); ABG PH 7.318 (7.35-7.45); ABG PO2 72.6 MM HG (80-95); ABG TCO2 31.6 MMOL/L (23-27)
[2021-03-15 03:39] LABS: ABG PCO2 73.3 MM HG (35-48)
[2021-03-15 03:44] LABS: Basophils # 0.1 10*3/uL (0.0-0.2); Basophils % 0.6 % (0.0-0.8); Eosinophils # 0.1 10*3/uL (0.0-0.87); Eosinophils % 0.9 % (0.00-10.9); Hematocrit 50.7 VOL% (42.0-52.0); Hemoglobin 16.4 GM/DL (14.0-18.0); Immature Granulocytes % 1.4 %; Immature Granulocytes Absolute 0.12 #; Lymphocytes # 1.7 10*3/uL (1.4-4.0); Lymphocytes % 19.4 % (21.2-54.2); Mean Corpuscular HGB Conc 32.3 GM/DL (32-36); Mean Corpuscular Volume 99.8 FL (87-102); Mean Platelet Volume 11.3 FL (9.6-12.0); Monocytes % 11.1 % (1.7-12.7); Neutrophils % 66.6 % (38.7-73.9); Platelet Count 192 T/CUMM (130-400); Red Blood Count 5.08 MC/CUMM (3.8-5.5); Red Cell Distribution Width 16.2 % (9.3-17.3); White Blood Count 8.6 T/CUMM (4-12)
[2021-03-15 04:20] LABS: Calcium 8.2 MG/DL (8.5-10.1); Osmolality,Calculated 275.8 MOS/KG (273-304); Potassium 3.9 MMOL/L (3.5-5.1)
[2021-03-15] MEDS ORDERED: MAGNESIUM SULF RIDER 2 GM/50 ML PREMIX IV ONE (05:43)
[2021-03-15] MEDS: ALBUTEROL/IPRATROPIUM 3 ML NEB RESP TX SCH ×2 (07:21→14:16)
[2021-03-15] MEDS ORDERED: MAGNESIUM SULF RIDER 4 GM/100 ML PREMIX IV PRN (07:49)
[2021-03-15] MEDS ORDERED: MAGNESIUM SULF RIDER 2 GM/50 ML PREMIX IV PRN (07:49)
[2021-03-15] MEDS ORDERED: LIDOCAINE 5% PATCH TRANSDERM SCH (09:00)
[2021-03-15] MEDS ORDERED: PANTOPRAZOLE 40 MG TABLET PO SCH (09:00)
[2021-03-15] MEDS ORDERED: FUROSEMIDE 40 MG TABLET PO SCH (09:00)
[2021-03-15] MEDS ORDERED: LOSARTAN 25 MG TABLET PO SCH (09:00)
[2021-03-15] MEDS ORDERED: SPIRONOLACTONE 25 MG TABLET PO SCH (09:00)
[2021-03-15] MEDS ORDERED: APIXABAN 5 MG TABLET PO SCH (09:00)
[2021-03-15] MEDS ORDERED: METOPROLOL SUCCINATE XL 50 MG TABLET PO SCH (09:00)
[2021-03-15] MEDS: methylPREDNISolone SOD SUC 40 MG/1 ML VIAL IV SCH ×2 (10:02→16:26)
[2021-03-15] MEDS: INSULIN LISPRO 100 UNIT/ML SUBCUT SCH ×3 (10:04→16:25)
[2021-03-15 10:18] LABS: ABG HCO3 29.7 MMOL/L (20-26); ABG Oxygen Saturation 96.2 % (95-100); ABG PCO2 68.8 MM HG (35-48); ABG PH 7.325 (7.35-7.45); ABG PO2 81.3 MM HG (80-95)
[2021-03-15 16:17] VITALS: BP 106/66
== END 2021-03-15 17:50 | disposition home or self-care (01) ==
LOC: EDBD → EDUNIT# → N.EDINP 20:55 → N.TELES 20:55 → N.ED 20:55 → N.EDINP 03-15 04:05
PROVIDERS: ADMIT Internal Medicine; ATTEND Internal Medicine Geriatric Medicine

== ENCOUNTER 2021-03-27 10:45 | Inpatient (IN) ==
[2021-03-27] MEDS ORDERED: DILTIAZEM 50 MG/10 ML VIAL IV STA (10:47)
[2021-03-27] MEDS ORDERED: SODIUM CHLORIDE 0.9% 1,000 ML IV STA (10:51)
[2021-03-27 11:28] LABS: Basophils # 0.1 10*3/uL (0.0-0.2); Basophils % 0.2 % (0.0-0.8); Eosinophils % 0.1 % (0.00-10.9); Hematocrit 55.4 VOL% (42.0-52.0); Hemoglobin 18.3 GM/DL (14.0-18.0); Immature Granulocytes Absolute 0.54 #; Lymphocytes # 0.9 10*3/uL (1.4-4.0); Lymphocytes % 3.2 % (21.2-54.2); Mean Corpuscular Volume 96.5 FL (87-102); Mean Platelet Volume 11.2 FL (9.6-12.0); Monocytes % 5.2 % (1.7-12.7); Neutrophils % 89.3 % (38.7-73.9); Platelet Count 159 T/CUMM (130-400); Red Blood Count 5.74 MC/CUMM (3.8-5.5); Red Cell Distribution Width 16.4 % (9.3-17.3); White Blood Count 26.7 T/CUMM (4-12)
[2021-03-27] MEDS: DILTIAZEM INJ 100 MG in SODIUM CHLORIDE 0.9% 100 ML IV SCH (11:38)
[2021-03-27 11:52] LABS: Ferritin 111.8 ng/mL (26-388)
[2021-03-27] MEDS ORDERED: ACETAMINOPHEN 325 MG TABLET PO ONE (11:53)
[2021-03-27 11:54] LABS: Anisocytosis Slight; Band Neutrophils 11 % (0-10); Lymphocytes 5 % (20-55); Macrocytosis 1+; Platelet Estimate Normal; Segmented Neutrophils 78 % (50-85); Smudge Cells Few; Total Cells Counted 100
[2021-03-27 11:55] LABS: Bilirubin,Total 0.8 MG/DL (0.20-1.00); Calcium 8.4 MG/DL (8.5-10.1); Osmolality,Calculated 283.4 MOS/KG (273-304); Potassium 3.9 MMOL/L (3.5-5.1); Thyroid Stimulating Hormone 1.28 uIU/ml (0.358-3.74); Total Protein 6.1 G/DL (6.4-8.2)
[2021-03-27 12:07] LABS: INR 1.1; PT Patient Result 12.6 SECS (10.5-12.0)
[2021-03-27 12:34] LABS: Barbiturates Screen,Urine Negative (Negative); Benzodiazepines Screen,Urine Negative (Negative); Cannabinoid Screen,Urine Negative (Negative); Opiate Screen,Urine Negative (Negative); Phencyclidine Screen,Urine Negative (Negative)
[2021-03-27 12:48] LABS: Bilirubin,Urine Negative (Negative); Blood, Urine Large mg/dL (Negative); Glucose,Urine (UA) Negative (Negative); Ketones,Urine Negative (Negative); Mucus,Urine Occasional /LPF (Occasional); Nitrite,Urine Negative (Negative); Protein,Urine 100 MG/DL; RBC,Urine 222 /HPF (0-4); Urine Appearance CLOUDY (Clear); Urine Color Yellow (Yellow); Urine Specific Gravity 1.015 (1.001-1.035); Urine Urobilinogen < 2.0 EU/DL (0.2-1.0)
[2021-03-27 13:16] LABS: Partial Thromboplastin Time 23.9 SECS (23.9-33.8)
[2021-03-27] MEDS ORDERED: ONDANSETRON 4 MG/2 ML VIAL IV PRN (14:27)
[2021-03-27] MEDS ORDERED: hydrALAZINE 20 MG/1 ML VIAL IV PRN (14:27)
[2021-03-27] MEDS ORDERED: DEXTROSE 50% 25 GM/50 ML VIAL IV PRN (14:27)
[2021-03-27] MEDS ORDERED: GLUCAGON 1 MG VIAL IM PRN (14:27)
[2021-03-27] MEDS ORDERED: DOCUSATE SODIUM 100 MG CAPSULE PO PRN (14:27)
[2021-03-27] MEDS ORDERED: BISACODYL 5 MG TABLET PO PRN (14:34)
[2021-03-27] MEDS ORDERED: ALBUTEROL/IPRATROPIUM 3 ML NEB RESP TX PRN (14:34)
[2021-03-27] MEDS ORDERED: ALBUTEROL 2.5 MG/3 ML NEB RESP TX PRN (15:00)
[2021-03-27] MEDS ORDERED: cefTRIAXone 1,000 MG in SODIUM CHLORIDE 0.9% 100 ML IV SCH (15:00)
[2021-03-27] MEDS ORDERED: MAGNESIUM SULF RIDER 2 GM/50 ML PREMIX IV ONE (15:24)
[2021-03-27] MEDS: INSULIN LISPRO 100 UNIT/ML SUBCUT SCH ×2 (16:33→21:49)
[2021-03-27] MEDS: OFLOXACIN 0.3% OPH SOLN 5 ML BOTTLE RIGHT EYE SCH ×2 (17:13→21:48)
[2021-03-27] MEDS: KETOROLAC 0.5% OPH SOLN 5 ML BOTTLE RIGHT EYE SCH ×2 (17:13→21:48)
[2021-03-27] MEDS: prednisoLONE ACETATE 1% OPH SUSP 5 ML BOTTLE RIGHT EYE SCH ×2 (17:13→21:48)
[2021-03-27] MEDS ORDERED: NITROGLYCERIN SL 0.4 MG TABLET SL PRN (21:41)
[2021-03-27] MEDS: APIXABAN 5 MG TABLET PO SCH (21:47)
[2021-03-27] MEDS: FUROSEMIDE 40 MG TABLET PO SCH (21:47)
[2021-03-27] MEDS: ACETAMINOPHEN 325 MG TABLET PO PRN (22:29)
[2021-03-27] MEDS ORDERED: SODIUM CHLORIDE 0.9% 1,000 ML IV ONE (22:43)
[2021-03-28] MEDS: ACETAMINOPHEN 325 MG TABLET PO PRN (02:32)
[2021-03-28 02:40] LABS: Basophils # 0.1 10*3/uL (0.0-0.2); Basophils % 0.4 % (0.0-0.8); Hematocrit 51.3 VOL% (42.0-52.0); Hemoglobin 16.4 GM/DL (14.0-18.0); Immature Granulocytes % 4.3 %; Lymphocytes # 0.5 10*3/uL (1.4-4.0); Lymphocytes % 1.3 % (21.2-54.2); Mean Corpuscular Volume 98.7 FL (87-102); Mean Platelet Volume 11.3 FL (9.6-12.0); Monocytes % 3.4 % (1.7-12.7); Neutrophils % 90.6 % (38.7-73.9); Red Cell Distribution Width 15.9 % (9.3-17.3)
[2021-03-28 02:42] LABS: Platelet Count 123 T/CUMM (130-400)
[2021-03-28] MEDS ORDERED: cefTRIAXone 1,000 MG in SODIUM CHLORIDE 0.9% 100 ML IV SCH (03:00)
[2021-03-28 03:07] LABS: Calcium 7.9 MG/DL (8.5-10.1); Osmolality,Calculated 285.1 MOS/KG (273-304); Potassium 3.4 MMOL/L (3.5-5.1); Risk Ratio 3.04; VLDL Cholesterol 26.4 MG/DL
[2021-03-28 03:09] LABS: Band Neutrophils 2 % (0-10); Lymphocytes 3 % (20-55); Platelet Estimate Normal; Segmented Neutrophils 92 % (50-85); Total Cells Counted 100
[2021-03-28] MEDS ORDERED: MAGNESIUM SULF RIDER 2 GM/50 ML PREMIX IV ONE (03:29)
[2021-03-28] MEDS: POTASSIUM CHLORIDE 20 MEQ TABLET PO PRN ×3 (04:02→09:16)
[2021-03-28 06:31] LABS: ABG Base Excess 0.2 MMOL/L (-2.5-2.5); ABG HCO3 24.6 MMOL/L (20-26); ABG Oxygen Saturation 96.2 % (95-100); ABG PH 7.241 (7.35-7.45); ABG PO2 89.2 MM HG (80-95); ABG TCO2 26.7 MMOL/L (23-27)
[2021-03-28 06:36] LABS: ABG PCO2 72.7 MM HG (35-48)
[2021-03-28] MEDS: INSULIN LISPRO 100 UNIT/ML SUBCUT SCH ×4 (07:37→20:17)
[2021-03-28] MEDS: DILTIAZEM INJ 100 MG in SODIUM CHLORIDE 0.9% 100 ML IV SCH (08:47)
[2021-03-28] MEDS: prednisoLONE ACETATE 1% OPH SUSP 5 ML BOTTLE RIGHT EYE SCH ×4 (09:15→20:17)
[2021-03-28] MEDS: KETOROLAC 0.5% OPH SOLN 5 ML BOTTLE RIGHT EYE SCH ×4 (09:15→20:17)
[2021-03-28] MEDS: OFLOXACIN 0.3% OPH SOLN 5 ML BOTTLE RIGHT EYE SCH ×4 (09:15→20:17)
[2021-03-28] MEDS: FUROSEMIDE 40 MG TABLET PO SCH ×2 (09:16→20:16)
[2021-03-28] MEDS: APIXABAN 5 MG TABLET PO SCH ×2 (09:16→20:17)
[2021-03-28] MEDS: NICOTINE 21 MG/24 HR PATCH TRANSDERM SCH (09:16)
[2021-03-28] MEDS: SPIRONOLACTONE 25 MG TABLET PO SCH (09:16)
[2021-03-28] MEDS: LOSARTAN 25 MG TABLET PO SCH (09:16)
[2021-03-28] MEDS: METOPROLOL SUCCINATE XL 50 MG TABLET PO SCH (09:17)
[2021-03-28] MEDS: PANTOPRAZOLE 40 MG TABLET PO SCH (09:17)
[2021-03-28] MEDS: LEVOFLOXACIN INJ 750 MG/150 ML PREMIX IV SCH (09:29)
[2021-03-28 11:17] LABS: ABG Base Excess 2.1 MMOL/L (-2.5-2.5); ABG HCO3 26.3 MMOL/L (20-26); ABG Oxygen Saturation 96.9 % (95-100); ABG PCO2 52.2 MM HG (35-48); ABG PH 7.355 (7.35-7.45); ABG PO2 84.7 MM HG (80-95); ABG TCO2 24.6 MMOL/L (23-27)
[2021-03-29] MEDS: ACETAMINOPHEN 325 MG TABLET PO PRN (00:11)
[2021-03-29] MEDS: DILTIAZEM INJ 100 MG in SODIUM CHLORIDE 0.9% 100 ML IV SCH ×2 (01:47→03:16)
[2021-03-29 07:07] LABS: Basophils % 0.1 % (0.0-0.8); Eosinophils % 0.2 % (0.00-10.9); Hematocrit 50.3 VOL% (42.0-52.0); Hemoglobin 15.6 GM/DL (14.0-18.0); Immature Granulocytes % 2.2 %; Immature Granulocytes Absolute 0.41 #; Lymphocytes # 0.3 10*3/uL (1.4-4.0); Lymphocytes % 1.6 % (21.2-54.2); Mean Corpuscular Volume 100.2 FL (87-102); Mean Platelet Volume 11.7 FL (9.6-12.0); Monocytes % 3.3 % (1.7-12.7); Neutrophils % 92.6 % (38.7-73.9); Platelet Count 101 T/CUMM (130-400); Red Blood Count 5.02 MC/CUMM (3.8-5.5); Red Cell Distribution Width 15.9 % (9.3-17.3); White Blood Count 18.2 T/CUMM (4-12)
[2021-03-29 07:32] LABS: Eosinophils 1 % (0-10); Lymphocytes 3 % (20-55); Platelet Estimate Adequate; Segmented Neutrophils 94 % (50-85); Total Cells Counted 100
[2021-03-29] MEDS: INSULIN LISPRO 100 UNIT/ML SUBCUT SCH ×4 (07:47→21:24)
[2021-03-29 07:56] LABS: Calcium 8.2 MG/DL (8.5-10.1); Osmolality,Calculated 276.7 MOS/KG (273-304)
[2021-03-29] MEDS: LOSARTAN 25 MG TABLET PO SCH (08:23)
[2021-03-29] MEDS: SPIRONOLACTONE 25 MG TABLET PO SCH (08:23)
[2021-03-29] MEDS: FUROSEMIDE 40 MG TABLET PO SCH ×2 (08:23→21:24)
[2021-03-29] MEDS: METOPROLOL SUCCINATE XL 50 MG TABLET PO SCH (08:23)
[2021-03-29] MEDS: NICOTINE 21 MG/24 HR PATCH TRANSDERM SCH (08:23)
[2021-03-29] MEDS: PANTOPRAZOLE 40 MG TABLET PO SCH (08:23)
[2021-03-29] MEDS: APIXABAN 5 MG TABLET PO SCH ×2 (08:23→21:24)
[2021-03-29] MEDS: KETOROLAC 0.5% OPH SOLN 5 ML BOTTLE RIGHT EYE SCH ×4 (08:23→21:23)
[2021-03-29] MEDS: OFLOXACIN 0.3% OPH SOLN 5 ML BOTTLE RIGHT EYE SCH ×4 (08:24→21:23)
[2021-03-29] MEDS: prednisoLONE ACETATE 1% OPH SUSP 5 ML BOTTLE RIGHT EYE SCH ×4 (08:24→21:23)
[2021-03-29] MEDS: LEVOFLOXACIN INJ 750 MG/150 ML PREMIX IV SCH (08:32)
[2021-03-30] MEDS: DILTIAZEM INJ 100 MG in SODIUM CHLORIDE 0.9% 100 ML IV SCH ×2 (02:00→11:48)
[2021-03-30 05:39] LABS: Basophils % 0.3 % (0.0-0.8); Eosinophils % 0.2 % (0.00-10.9); Hemoglobin 15.9 GM/DL (14.0-18.0); Immature Granulocytes % 2.1 %; Immature Granulocytes Absolute 0.23 #; Lymphocytes # 0.4 10*3/uL (1.4-4.0); Lymphocytes % 3.4 % (21.2-54.2); Mean Corpuscular HGB Conc 31.2 GM/DL (32-36); Mean Corpuscular Volume 101.4 FL (87-102); Mean Platelet Volume 12.1 FL (9.6-12.0); Monocytes % 4.8 % (1.7-12.7); Neutrophils % 89.2 % (38.7-73.9); Platelet Count 87 T/CUMM (130-400); Red Blood Count 5.03 MC/CUMM (3.8-5.5); Red Cell Distribution Width 15.8 % (9.3-17.3)
[2021-03-30 05:53] LABS: White Blood Count 11.1 T/CUMM (4-12)
[2021-03-30 06:10] LABS: Calcium 8.5 MG/DL (8.5-10.1); Osmolality,Calculated 276.7 MOS/KG (273-304)
[2021-03-30 06:11] LABS: Band Neutrophils 3 % (0-10); Lymphocytes 7 % (20-55); Platelet Estimate Decreased; Segmented Neutrophils 84 % (50-85); Total Cells Counted 100
[2021-03-30] MEDS ORDERED: MAGNESIUM SULF RIDER 2 GM/50 ML PREMIX IV ONE (07:07)
[2021-03-30] MEDS: INSULIN LISPRO 100 UNIT/ML SUBCUT SCH ×5 (08:35→22:15)
[2021-03-30] MEDS: PANTOPRAZOLE 40 MG TABLET PO SCH (09:03)
[2021-03-30] MEDS: METOPROLOL SUCCINATE XL 50 MG TABLET PO SCH (09:03)
[2021-03-30] MEDS: FUROSEMIDE 40 MG TABLET PO SCH ×2 (09:03→22:15)
[2021-03-30] MEDS: APIXABAN 5 MG TABLET PO SCH ×2 (09:04→22:14)
[2021-03-30] MEDS: SPIRONOLACTONE 25 MG TABLET PO SCH (09:04)
[2021-03-30] MEDS: NICOTINE 21 MG/24 HR PATCH TRANSDERM SCH (09:04)
[2021-03-30] MEDS: LOSARTAN 25 MG TABLET PO SCH (09:04)
[2021-03-30] MEDS: LEVOFLOXACIN INJ 750 MG/150 ML PREMIX IV SCH (09:06)
[2021-03-30] MEDS: OFLOXACIN 0.3% OPH SOLN 5 ML BOTTLE RIGHT EYE SCH ×4 (09:07→22:26)
[2021-03-30] MEDS: KETOROLAC 0.5% OPH SOLN 5 ML BOTTLE RIGHT EYE SCH ×4 (09:07→22:25)
[2021-03-30] MEDS: prednisoLONE ACETATE 1% OPH SUSP 5 ML BOTTLE RIGHT EYE SCH ×4 (09:07→22:25)
[2021-03-31 05:34] LABS: Basophils % 0.5 % (0.0-0.8); Eosinophils # 0.1 10*3/uL (0.0-0.87); Eosinophils % 0.9 % (0.00-10.9); Hemoglobin 16.5 GM/DL (14.0-18.0); Immature Granulocytes % 2.2 %; Immature Granulocytes Absolute 0.17 #; Lymphocytes # 0.7 10*3/uL (1.4-4.0); Lymphocytes % 8.7 % (21.2-54.2); Mean Corpuscular HGB Conc 31.7 GM/DL (32-36); Mean Corpuscular Volume 97.4 FL (87-102); Mean Platelet Volume 12.1 FL (9.6-12.0); Monocytes % 10.5 % (1.7-12.7); Neutrophils % 77.2 % (38.7-73.9); Platelet Count 106 T/CUMM (130-400); Red Blood Count 5.34 MC/CUMM (3.8-5.5); Red Cell Distribution Width 15.3 % (9.3-17.3); White Blood Count 7.8 T/CUMM (4-12)
[2021-03-31 06:08] LABS: Calcium 8.6 MG/DL (8.5-10.1); Osmolality,Calculated 276.7 MOS/KG (273-304); Potassium 4.1 MMOL/L (3.5-5.1)
[2021-03-31 06:14] LABS: Lymphocytes 13 % (20-55); Platelet Estimate Decreased; Segmented Neutrophils 76 % (50-85); Total Cells Counted 100
[2021-03-31] MEDS ORDERED: MAGNESIUM SULF RIDER 2 GM/50 ML PREMIX IV ONE (07:14)
[2021-03-31] MEDS: INSULIN LISPRO 100 UNIT/ML SUBCUT SCH ×2 (08:21→12:40)
[2021-03-31] MEDS: KETOROLAC 0.5% OPH SOLN 5 ML BOTTLE RIGHT EYE SCH ×2 (09:30→13:12)
[2021-03-31] MEDS: SPIRONOLACTONE 25 MG TABLET PO SCH (09:30)
[2021-03-31] MEDS: FUROSEMIDE 40 MG TABLET PO SCH (09:30)
[2021-03-31] MEDS: LEVOFLOXACIN INJ 750 MG/150 ML PREMIX IV SCH (09:30)
[2021-03-31] MEDS: LOSARTAN 25 MG TABLET PO SCH (09:30)
[2021-03-31] MEDS: APIXABAN 5 MG TABLET PO SCH (09:30)
[2021-03-31] MEDS: NICOTINE 21 MG/24 HR PATCH TRANSDERM SCH (09:30)
[2021-03-31] MEDS: PANTOPRAZOLE 40 MG TABLET PO SCH (09:31)
[2021-03-31] MEDS: prednisoLONE ACETATE 1% OPH SUSP 5 ML BOTTLE RIGHT EYE SCH ×2 (09:31→13:12)
[2021-03-31] MEDS: OFLOXACIN 0.3% OPH SOLN 5 ML BOTTLE RIGHT EYE SCH ×2 (09:31→13:12)
[2021-03-31] MEDS: METOPROLOL SUCCINATE XL 50 MG TABLET PO SCH (09:31)
[2021-03-31] MEDS: DILTIAZEM INJ 100 MG in SODIUM CHLORIDE 0.9% 100 ML IV SCH (12:03)
[2021-03-31 12:19] VITALS: BP 125/73
== END 2021-03-31 15:31 | disposition home health service (06) | DRG 871 ==
LOC: EDUNIT# → EDBD → N.ED 10:45 → SUATTDRO 14:27 → N.EDINP 14:27 → N.TELES 14:47
PROVIDERS: ADMIT Internal Medicine; ATTEND Hospitalist